=== PATIENT | male | born 1975 | race Two or more races ===

== ENCOUNTER 2025-05-21 19:48 | Emergency (ER) | payer OTHER ==
[~2025-05-21] VITALS: Ht 172.7 cm; Wt 74.4 kg
[2025-05-21] MEDS ORDERED: 0.9 % SODIUM CHLORIDE 1,000 ML IV ONE (20:30)
[2025-05-21] MEDS ORDERED: FAMOtidine 10 MG/ML (4ML VIAL) IV ONE (21:15)
[2025-05-21] MEDS ORDERED: MORPHINE SULFATE 4 MG/ML VIAL IV ONE (21:15)
[2025-05-21 21:18] LABS: BASO % 0.7 % (0.1-1.2); EOS # 0.11 (0.04-0.54); EOS % 1.3 % (0.7-7.0); LYMPH # 1.72 (1.18-3.74); LYMPH % 21.0 % (19.3-53.1); MEAN PLATELET VOLUME 8.80 fl (9.4-12.4); MONO # 0.85 (0.24-0.82); MONO % 10.4 % (4.7-12.5); NEUT # 5.39 (1.56-6.13); NEUT % 66.0 % (34.0-71.1); RED CELL DISTRIBUTION WIDTH 14.6 % (11.6-14.4)
[2025-05-21 21:40] LABS: INR 1.21
[2025-05-21 21:44] LABS: ALT/SGPT 35.0 U/L (12-78); AST/SGOT 63.0 U/L (15-37); BILIRUBIN TOTAL 0.45 mg/dL (0.3-1.2); BUN CREA RATIO 13.0 (7.0-25.0); CREATININE SERUM 0.83 mg/dL (0.70-1.30); GFR 98.47; GLOBULINA 5.5 G/DL (2.4-3.5); GLUCOSE FASTING 119.0 mg/dL (65-100); OSMOLALITY SERUM 278.0 MOSM/KG (275-295)
[2025-05-21 22:22] LABS: URINE APPEARANCE Clear; URINE BILIRRUBIN Moderate (NEGATIVE); URINE BLOOD Negative; URINE COLOR Orange; URINE GLUCOSE Negative (NEGATIVE); URINE KETONE Negative (NEGATIVE); URINE LEUKOCYTE Small; URINE NITRATE Positive; URINE PROTEIN 30 (NEGATIVE); URINE UROBILINOGEN 1.0 E.U./dl
[2025-05-21 22:24] LABS: ob POSITIVE (NEGATIVE)
[2025-05-21 22:25] LABS: URINE EPITHELIAL CELLS 16.4 uL (0.0-38.8); URINE RBC 3.6 uL (0.0-20.8); URINE WBC 12.6 uL (0.0-23.2)
[2025-05-21 22:41] LABS: URINE BACTERIA 2.4 uL (0.0-1933); URINE CAST 0.58 uL (0.0-1.40); URINE MUCUS HEAVY; URINE YEAST FEW /hpf
[2025-05-21] MEDS ORDERED: CEFTRIAXONE SODIUM 1,000 MG VIAL IV ONE (23:00)
[2025-05-22] MEDS ORDERED: MORPHINE SULFATE 4 MG/ML VIAL IV STA (02:34)
[2025-05-22] MEDS ORDERED: TRAMADOL HCL50 MG PO (02:38)
== END 2025-05-22 03:07 ==
LOC: ER 21:31
PROVIDERS: General Practice
DX: C18.9 Malignant neoplasm of colon, unspecified (principal); C22.9 Malignant neoplasm of liver, not specified as primary or secondary; K62.5 Hemorrhage of anus and rectum

== ENCOUNTER 2025-07-03 10:28 | Emergency (ER) | payer OTHER ==
[~2025-07-03] VITALS: Ht 172.7 cm; Wt 63.5 kg
[~2025-07-03 10:28] MED LIST: TRAMADOL HCL E100 M1 PO; TRAMADOL HCL50 MG PO
[2025-07-03] MEDS ORDERED: KETOROLAC TROMETHAMINE 30 MG VIAL IV ONE (11:15)
[2025-07-03] MEDS ORDERED: CEFTRIAXONE SODIUM 2,000 MG VIAL IV ONE (11:15)
[2025-07-03] MEDS ORDERED: 0.9 % SODIUM CHLORIDE 1,000 ML IV SCH (11:15)
[2025-07-03 11:44] LABS: BASO % 0.5 % (0.1-1.2); EOS # 0.06 (0.04-0.54); EOS % 0.7 % (0.7-7.0); LYMPH # 1.40 (1.18-3.74); LYMPH % 17.3 % (19.3-53.1); MEAN PLATELET VOLUME 9.70 fl (9.4-12.4); MONO # 1.17 (0.24-0.82); NEUT # 5.40 (1.56-6.13); NEUT % 66.8 % (34.0-71.1); RED CELL DISTRIBUTION WIDTH 15.0 % (11.6-14.4)
[2025-07-03 11:51] LABS: MONO % 14.5 % (4.7-12.5)
[2025-07-03 12:32] LABS: ALT/SGPT 31.0 U/L (12-78); AST/SGOT 87.0 U/L (15-37); BILIRUBIN TOTAL 0.84 mg/dL (0.3-1.2); BUN CREA RATIO 10.0 (7.0-25.0); CREATININE SERUM 0.72 mg/dL (0.70-1.30); GFR 116.03; GLOBULINA 5.5 G/DL (2.4-3.5); GLUCOSE FASTING 115.0 mg/dL (65-100); OSMOLALITY SERUM 271.0 MOSM/KG (275-295)
[2025-07-03 13:40] LABS: URINE APPEARANCE Clear; URINE BILIRRUBIN Small (NEGATIVE); URINE BLOOD Negative; URINE COLOR Dark Yellow; URINE GLUCOSE Negative (NEGATIVE); URINE KETONE Trace (NEGATIVE); URINE LEUKOCYTE Trace; URINE NITRATE Negative; URINE PROTEIN 30 (NEGATIVE); URINE UROBILINOGEN 2.0 E.U./dl
[2025-07-03 13:44] LABS: URINE BACTERIA 9.5 uL (0.0-1933); URINE EPITHELIAL CELLS 17.5 uL (0.0-38.8); URINE WBC 10.5 uL (0.0-23.2)
[2025-07-03 13:59] LABS: URINE CAST 0.29 uL (0.0-1.40); URINE RBC 1.9 uL (0.0-20.8)
[2025-07-03 14:00] LABS: TYPE CELLS SQUAMOUS
== END 2025-07-03 15:33 | disposition home or self-care (01) ==
LOC: ER 10:28
PROVIDERS: General Practice
DX: R10.2 Pelvic and perineal pain (principal); Z85.038 Personal history of other malignant neoplasm of large intestine; C79.9 Secondary malignant neoplasm of unspecified site; I10 Essential (primary) hypertension; C22.0 Liver cell carcinoma; C79.89 Secondary malignant neoplasm of other specified sites